=== PATIENT | male | born 1955 | race Hispanic/Latino ===

== ENCOUNTER 2018-06-03 05:40 | Inpatient (IN) | payer BC | END 2018-06-04 12:27 | disposition home or self-care (01) | LOC: DAHIP 05:40 → 4BH 11:49 | PROC: 01N10ZZ Release Cervical Nerve, Open Approach (ICD-10-PCS; principal; 2018-06-03 07:22) | PROC: 0RG20J0 Fusion of 2 or more Cervical Vertebral Joints with Synthetic Substitute, Anterior Approach, Anterior Column, Open Approach (ICD-10-PCS; 2018-06-03 07:22) | DX: M54.10 Radiculopathy, site unspecified (principal); M48.02 Spinal stenosis, cervical region ==

== ENCOUNTER → 2018-07-07 | Outpatient (CLI) | payer BC ==
[~2018-07-07] MED LIST: AMLO5TAB9 PO; CELE200 PO; CETI10CA5 PO; CYCL5TAB PO; ESOM20CA31 PO; EZET10TA26 PO; FISH1CAP49 PO; GABA-529 PO; HYDR-4060 PO; LEFL10TA15 PO; LOSA25TA41 PO; METF-446 PO; METO-408 PO; MULT-1258 PO; TRAM50TA4 PO; UBID1CAP56 PO
== END | disposition home or self-care (01) ==
LOC: RAH 10:48
PROVIDERS: ATTEND Neurological Surgery
DX: M43.22 Fusion of spine, cervical region (principal)
CPT/HCPCS: 72040

== ENCOUNTER → 2019-10-10 | Outpatient (CLI) | payer BC ==
[~2019-10-10] MED LIST changes: -EZET10TA26 PO; +EZET10TA48 PO
== END | disposition home or self-care (01) ==
LOC: RAH 08:30
PROVIDERS: ATTEND Neurological Surgery
DX: M51.27 Other intervertebral disc displacement, lumbosacral region (principal); M48.061 Spinal stenosis, lumbar region without neurogenic claudication; M48.062 Spinal stenosis, lumbar region with neurogenic claudication
CPT/HCPCS: 72148

== ENCOUNTER 2020-07-06 09:00 | Observation (INO) | payer BC, MEDICARE ==
[~2020-07-06] VITALS: Ht 175.3 cm; Wt 79.3 kg
[~2020-07-06 09:00] MED LIST changes: +AMLO-257 PO; -AMLO5TAB9 PO; -CYCL5TAB PO; -EZET10TA48 PO; -FISH1CAP49 PO; -HYDR-4060 PO; -METF-446 PO; -TRAM50TA4 PO; -UBID1CAP56 PO
[2020-07-27 10:35] VITALS: BP 145/83
[2020-07-27 11:02] LABS: BASOPHILS % (AUTO) 0.8 % (0.0-5.0); EOSINOPHILS % (AUTO) 4.3 % (0.0-8.0); HEMATOCRIT 44.7 % (42-54); LYMPHOCYTES % (AUTO) 22.9 % (21.0-51.0); MEAN CORPUSCULAR HEMOGLOBIN 30.7 pg (27.0-33.0); MEAN CORPUSCULAR HGB CONC 33.8 g/dL (32.0-36.0); MEAN CORPUSCULAR VOLUME 90.9 fL (79-99); MONOCYTES % (AUTO) 7.1 % (3.0-13.0); NEUTROPHILS % (AUTO) 64.4 % (40.0-77.0); PLATELET COUNT (AUTO) 199 K/uL (130-400); RED BLOOD CELL COUNT(AUTO) 4.92 MIL/uL (4.50-6.20); RED CELL DISTRIBUTION WIDTH 13.1 % (11.0-15.5); WHITE BLOOD COUNT (AUTO) 6.1 K/uL (4.8-10.8)
[2020-07-27 11:09] LABS: POTASSIUM 4.5 mmol/L (3.5-5.1)
[2020-07-30] MEDS ORDERED: CHOL500051 PO (10:14)
[2020-07-30] MEDS ORDERED: TIZA2CAP9 PO (10:14)
[2020-07-30] MEDS ORDERED: NAPR220T57 PO (10:16)
[2020-07-30] MEDS ORDERED: SITA50TA PO (10:17)
[2020-07-31] VITALS (23 sets, daily range): BP systolic 106–144; BP diastolic 60–84
[2020-07-31] MEDS: CEFAZOLIN SODIUM 1 GM VIAL IVP SCH ×4 (06:00→23:39)
[2020-07-31] MEDS ORDERED: SODIUM CHLORIDE 0.9% 1000ML 1,000 ML IV ONE (06:13)
[2020-07-31 06:42] LABS: CREATININE 0.9 mg/dL (0.5-1.5); POTASSIUM 4.2 mmol/L (3.5-5.1)
[2020-07-31] MEDS ORDERED: SUCCINYLCHOLINE CHLORIDE 20 MG/ML 10 ML VIAL ONE (06:55)
[2020-07-31] MEDS ORDERED: LIDOCAINE PF 2% 5ML ABBOJECT ONE (06:55)
[2020-07-31] MEDS ORDERED: PROPOFOL 10 MG/ML 20ML VIAL IV ONE (06:56)
[2020-07-31] MEDS ORDERED: DEXAMETHASONE SOD PHOSPHATE 10MG/ML 1ML VIAL ONE (06:56)
[2020-07-31] MEDS ORDERED: NEOSTIGMINE 5MG/5ML SYR IV ONE (06:57)
[2020-07-31] MEDS ORDERED: ONDANSETRON HCL 4 MG/2 ML VIAL ONE (06:57)
[2020-07-31] MEDS ORDERED: GLYCOPYRROLATE 1 MG/5 ML SYRINGE ONE (06:57)
[2020-07-31] MEDS ORDERED: ROCURONIUM 10MG/1ML SYR 10 MG/ML ML ONE (06:57)
[2020-07-31] MEDS ORDERED: MIDAZOLAM HCL 1 MG/ML 2ML VIAL ONE (06:57)
[2020-07-31] MEDS ORDERED: FENTANYL CITRATE PF 50 MCG/1 ML 2ML VIAL ONE ×2 (06:58→09:21)
[2020-07-31] MEDS ORDERED: CEFAZOLIN SODIUM 1 GM VIAL ONE (07:00)
[2020-07-31] MEDS ORDERED: DURAMORPH PF1 MG/ML 10ML AMP IV ONE (07:01)
[2020-07-31] MEDS ORDERED: THROMBIN-JMI 5000 UNIT/VIAL TP ONE (07:01)
[2020-07-31] MEDS ORDERED: BUPIVACAINE/EPI/PF 0.25% 10ML VIAL IJ ONE (07:01)
[2020-07-31] MEDS ORDERED: EPHEDRINE SULFATE 50 MG/ML AMPULE ONE (07:55)
[2020-07-31] MEDS ORDERED: CEFAZOLIN SODIUM 1 GM VIAL IVP SCH (11:30)
[2020-07-31] MEDS: LACTATED RINGERS 1000ML 1,000 ML IV SCH (11:30)
[2020-07-31] MEDS: DEXAMETHASONE SOD PHOSPHATE 4 MG/ML 1ML VIAL IVP SCH ×3 (11:30→23:39)
[2020-07-31] MEDS ORDERED: SODIUM CHLORIDE 0.9% 10 ML VIAL IVP PRN (11:30)
[2020-07-31] MEDS ORDERED: PROMETHAZINE HCL 25 MG/ML 1ML AMPULE IM PRN (11:30)
[2020-07-31] MEDS ORDERED: MORPHINE SULFATE 2 MG/ML 1ML SYG IVP PRN (11:30)
[2020-07-31] MEDS ORDERED: HYDROCODONE/ACETAMINOPHEN 5/325 MG TAB PO PRN (11:30)
[2020-07-31] MEDS: MULTIVITAMIN WITH MINERALS TABLET PO SCH (12:17)
[2020-07-31] MEDS ORDERED: TIZANIDINE HCL 2 MG TABLET PO SCH (21:00)
[2020-07-31] MEDS ORDERED: LOSARTAN 25 MG TABLET PO SCH (21:00)
[2020-07-31] MEDS: CELECOXIB 200 MG CAP PO SCH (21:55)
[2020-07-31] MEDS: NAPROXEN 250 MG TAB PO SCH (21:55)
[2020-07-31] MEDS: GABAPENTIN 100 MG CAPSULE PO SCH (21:56)
[2020-07-31] MEDS: INSULIN HUMULIN R 100 UNIT/ML 3ML SQ SCH (22:02)
[2020-08-01 00:05] VITALS: BP 120/70
[2020-08-01] MEDS: LACTATED RINGERS 1000ML 1,000 ML IV SCH (00:50)
[2020-08-01 04:05] VITALS: BP 121/70
[2020-08-01] MEDS: DEXAMETHASONE SOD PHOSPHATE 4 MG/ML 1ML VIAL IVP SCH ×2 (05:31→11:30)
[2020-08-01] MEDS: INSULIN HUMULIN R 100 UNIT/ML 3ML SQ SCH ×2 (05:40→11:49)
[2020-08-01 07:54] VITALS: BP 109/81
[2020-08-01] MEDS ORDERED: LINAGLIPTIN 5 MG TABLET PO SCH (08:00)
[2020-08-01] MEDS: CELECOXIB 200 MG CAP PO SCH (08:45)
[2020-08-01] MEDS: MULTIVITAMIN WITH MINERALS TABLET PO SCH (08:45)
[2020-08-01] MEDS: GABAPENTIN 100 MG CAPSULE PO SCH (08:46)
[2020-08-01] MEDS: NAPROXEN 250 MG TAB PO SCH (08:58)
[2020-08-01] MEDS ORDERED: PANTOPRAZOLE SODIUM 40 MG TABLET.DR PO SCH (09:00)
[2020-08-01] MEDS ORDERED: METOPROLOL SUCCINATE 50 MG TAB.SR.24H PO SCH (09:00)
[2020-08-01] MEDS ORDERED: LEFLUNOMIDE 10 MG PO SCH (09:00)
[2020-08-01] MEDS ORDERED: AMLODIPINE BESYLATE 5 MG TAB PO SCH (09:00)
[2020-08-01] MEDS ORDERED: CHOLECALCIFEROL 125 MCG PO SCH (09:00)
[2020-08-01] MEDS ORDERED: CETIRIZINE HCL 5 MG TABLET PO SCH (09:00)
[2020-08-01 11:47] VITALS: BP 121/79
== END 2020-08-01 14:06 | disposition home or self-care (01) ==
LOC: DAHIP 07-31 06:02 → EDSTATUS 07-31 09:30 → 4AH 07-31 12:05
PROVIDERS: ADMIT Neurological Surgery; ATTEND Neurological Surgery
DX: M48.07 Spinal stenosis, lumbosacral region (principal); M54.17 Radiculopathy, lumbosacral region; Z20.822 Contact with and (suspected) exposure to COVID-19; E11.9 Type 2 diabetes mellitus without complications; E78.00 Pure hypercholesterolemia, unspecified; I10 Essential (primary) hypertension; Z90.49 Acquired absence of other specified parts of digestive tract; Z79.899 Other long term (current) drug therapy
CPT/HCPCS: 36415 ×2; 63047; 71045; 72020; 80048; 80051; 82948 ×6; 85025; 96361 ×2; 96372 ×2; 96374; 96375; 96376 ×2; A4215; A4221; A4222; A4223; A4344; A4510; A4600; A4649 ×4; A4663; A6260; G0378 ×27; J0330; J0690 ×4; J1100 ×4; J1815 ×2; J2001; J2250; J2274; J2405; J2704; J2710; J3010 ×2; J3490 ×4; J7030; J7120; U0003